=== PATIENT | female | born 1955 | race Caucasian/White ===

== ENCOUNTER 2019-08-26 09:04 | Outpatient (CLI) | payer OTHER, SELFPAY ==
--- NOTE | 2019-08-26 09:07 | MM_ITS ---
WS: [id number] BILATERAL DIGITAL SCREENING MAMMOGRAPHY WITH CAD CLINICAL INFORMATION: SCREENING HISTORY: Screening mammogram. No current complaints. COMPARISON: TECHNIQUE: Bilateral CC and MLO views. FINDINGS: Scattered fibroglandular densities bilaterally. Stable bilateral secretory calcifications. No suspici ous focal mass, asymmetry, calcifications, or architectural distortion. No evidence of malignancy. MM/[place] [id number] IMPRESSION: BI-RADS: 2-Benign FOLLOW UP: 1 Year Follow-up Recommend return to annual screening mammography.
== END 2019-08-26 09:05 | disposition home or self-care (01) ==
LOC: RADSHAW 09:05
PROVIDERS: Family Provider Nurse Practitioner; PCP Nurse Practitioner; Visit Provider Nurse Practitioner
DX: Z12.31 Encounter for screening mammogram for malignant neoplasm of breast (principal)
CPT/HCPCS: 77067

== ENCOUNTER 2019-09-22 09:46 | Outpatient (CLI) | payer OTHER, SELFPAY ==
--- NOTE | 2019-09-22 09:59 | XR_ITS ---
WS: [id number] CHEST 2 VIEWS HISTORY: PNEUMONIA COMPARISON: 03/13/2012 Lungs: New haziness and partial obscuration of the LEFT costophrenic angle. The remaining lungs are c lear. Cardiac size: Normal. Mediastinum/Aorta: Normal mediastinum. Bones: Normal. XR/XR chest 2V* [id number] IMPRESSION: Subsegmental atelectasis or pneumonitis at the LEFT costophrenic angle.
== END 2019-09-22 09:47 | disposition home or self-care (01) ==
LOC: RADWPI 09:56
PROVIDERS: Family Provider Nurse Practitioner; PCP Nurse Practitioner; Visit Provider Nurse Practitioner
DX: J15.9 Unspecified bacterial pneumonia
CPT/HCPCS: 71046

== ENCOUNTER 2020-09-21 08:52 | Outpatient (CLI) | payer OTHER, SELFPAY ==
--- NOTE | 2020-09-21 08:56 | MM_ITS ---
WS: [id number] BILATERAL DIGITAL SCREENING MAMMOGRAPHY WITH CAD CLINICAL INFORMATION: SCREENING HISTORY: Screening mammogram. No current complaints. COMPARISON: August 26, 2019 TECHNIQUE: Bilateral CC and MLO views. FINDINGS: Scattered fibroglandular densities bilaterally. No suspicious focal mass, asymmetry, calcifications, or architectural distortion. No evidence of malignancy. Punctate and secretory calcifications. Vascul ar calcification. MM/[place] [id number] IMPRESSION: BI-RADS: 2-Benign FOLLOW UP: 1 Year Follow-up Recommend return to annual screening mammography.
== END 2020-09-21 08:53 | disposition home or self-care (01) ==
LOC: RADSHAW 08:53
PROVIDERS: PCP Nurse Practitioner; Visit Provider Nurse Practitioner
DX: Z12.31 Encounter for screening mammogram for malignant neoplasm of breast (principal)
CPT/HCPCS: 77067

== ENCOUNTER 2020-09-24 08:43 | Outpatient (CLI) | payer OTHER, SELFPAY ==
[2020-09-24 09:21] LABS: Basophils % 0.7 %; Eosinophils # 0.1 10^3/uL (0.0-0.8); Eosinophils % 3.1 %; Hematocrit 44.6 % (37.0-47.0); Hemoglobin 13.9 g/dL (11.5-15.3); Lymphocytes # 1.2 10^3/uL (0.8-4.8); Lymphocytes % 26.3 %; Mean Corpuscular HGB Conc 31.2 g/dL (30.0-36.0); Mean Corpuscular Hemoglobin 28.4 pg (28.0-34.0); Mean Platelet Volume 8.6 fL (7.4-10.4); Monocytes # 0.3 10^3/uL (0.2-0.9); Monocytes % 7.1 %; Neutrophils # 2.84 10^3/uL (1.8-7.7); Neutrophils % 62.6 %; Nucleated Red Blood Cells % 0 %; Platelet Count 194 10^3/cmm (130-400); Red Cell Distribution Width 13.5 % (12.1-15.1); White Blood Count 4.5 10^3/uL (4.0-10.0)
[2020-09-24 09:43] LABS: Alanine Aminotransferase 19 U/L (0-33); Albumin Level 4.5 g/dL (3.5-5.2); Alkaline Phosphatase 61 IU/L (35-105); Anion Gap 14.2 (5-19); Aspartate Amino Transferase 19 U/L (0-32); Blood Urea Nitrogen 22 mg/dL (8-23); Calcium 9.7 mg/dL (8.5-10.5); Carbon Dioxide 26 mmol/L (22-29); Chloride 105 mmol/L (98-107); Chol HDL Ratio 2.73 mg/dL (0.0-4.40); Cholesterol 183 mg/dL (0-200); Globulin 2.5 g/dL (1.3-4.6); Glomerular Filtration Rate 72.2 mL/min (90-130); Glucose 92 mg/dL (65-115); HDL Cholesterol 67 mg/dL (60-100); LDL Cholesterol Calculated 98 mg/dL (50-129); LDL HDL Ratio 1.46 RATIO (0.00-3.22); Osmolality Calculated 295 mOsm/kg (285-295); Potassium 4.2 mmol/L (3.5-5.1); Sodium 141 mmol/L (136-145); Thyroid Stimulating Hormone 1.91 uIU/mL (0.27-4.20); Total Bilirubin 0.4 mg/dL (0.15-1.2); Triglycerides 92 mg/dL (0-150)
== END 2020-09-24 08:44 | disposition home or self-care (01) ==
PROVIDERS: PCP Nurse Practitioner; Visit Provider Nurse Practitioner
DX: E03.8 Other specified hypothyroidism (principal)
CPT/HCPCS: 36415; 80053; 80061; 84443; 85025

== ENCOUNTER 2021-05-21 15:26 | Outpatient (CLI) | payer MEDICARE, OTHER, SELFPAY ==
--- NOTE | 2021-05-21 15:32 | MR_ITS ---
WS: [id number] MRI LEFT KNEE HISTORY: LEFT KNEE EFFUSION COMPARISON: 01/27/2018 Anterior cruciate ligament: Intact. Posterior cruciate ligament: Intact. Medial collateral ligament: Intact. Posterior lateral corner structures: There is a small amount of fluid and increased signal in the pop liteus tendon, otherwise posterior corner structures appear intact. Medial menisci: Mild fraying involving the free edge of the posterior horn. Otherwise no tear. Lateral meniscus: Abnormal shape and signal involving the free edge of the posterior and anterior hor ns. There is increased T2 signal with blunting at the free edges. This is also the area of most signi ficant marrow signal abnormality and loss of cartilage. Extensor mechanism: Distal quadriceps tendon and patellar tendons are intact. Fluid and soft tissue: Small suprapatellar joint effusion. There is a loose body measuring 7 mm in th e suprapatellar fluid. There is additional low signal within the fluid from additional loose bodies. Moderate-sized Leavitt's cyst. There is additional fluid that extends along the medial head of the uyen rocnemius which appears separate from the Leavitt's cyst. Osseous and articular structures: Patellofemoral compartment: Severe narrowing of patellofemoral compartment. Complete loss of cartilag e with lateral subluxation of the patella and subchondral cystic changes involving the patella and th e anterior femur. Shallow lateral trochlea. Medial compartment: Mild narrowing of the medial compartment. No marrow edema. Small marginal osteoph ytes. Lateral compartment: Moderate narrowing of the lateral compartment. There is osteophyte measuring 3 x 7 mm which has slightly increased in size along the weightbearing surface of the lateral femoral condyle. There is a large amount of edema in the tibial plateau which is probably due to repetitive injury from the osteophyte. There are also meniscal tears and cartilage abnormalities along the same weightbearing distribution. Moderate size osteophytes along the joint line. MR/MR knee LT wo con* [id number] IMPRESSION: 1. Progression of degenerative changes in the lateral compartment are probably all associated with the 3 x 7 mm osteophyte that extends from the weightbearin g surface of the femoral condyle into the joint space. There is associated deb ow edema along the tibial plateau with increasing cartilage injury and meniscal tears. Progression of changes since 01/27/2018. Meniscal tears involving the fr ee edge is of the anterior and posterior horns of the lateral meniscus. 2. Small suprapatellar joint effusion with loose bodies. 3. 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 4. Moderate-sized Leavitt's cyst. Small amount of fluid extends along the medial head of the gastrocnemius. 5. Mild fraying free edge posterior horn medial meniscus.
== END 2021-05-21 15:27 | disposition home or self-care (01) ==
PROVIDERS: PCP Nurse Practitioner; Visit Provider Emergency Medicine
DX: M25.462 Effusion, left knee (principal); M71.22 Synovial cyst of popliteal space [Baker], left knee
CPT/HCPCS: 73721

== ENCOUNTER 2021-08-27 13:14 | Outpatient (CLI) | payer MEDICARE, OTHER, SELFPAY ==
--- NOTE | 2021-08-27 13:26 | XR_ITS ---
WS: [id number] KUB, AP view, 08/27/2021 Clinical Data: STONE Comparison: KUB, 11/17/2016. Findings: No abnormal intraabdominal masses or calcifications are seen. There is no dilatated small bowel or ev idence of obstruction. There is a large amount of fecal material throughout the colon. Bladder is partly full. XR/XR KUB [id number] Impression: Large amount of fecal material throughout the colon.
== END 2021-08-27 13:15 | disposition home or self-care (01) ==
PROVIDERS: PCP Nurse Practitioner; Visit Provider Urology
DX: N20.2 Calculus of kidney with calculus of ureter (principal)
CPT/HCPCS: 74018; 81003

== ENCOUNTER 2021-08-28 13:22 | Outpatient (CLI) | payer MEDICARE, OTHER, SELFPAY ==
--- NOTE | 2021-08-28 13:30 | CT_ITS ---
WS: [id number] CT ABDOMEN PELVIS TECHNIQUE: Noncontrast CT of the abdomen and pelvis with coronal and sagittal reformatted images. CLINICAL INFORMATION: URETERAL STONE COMPARISON: CT March 31, 2016 DLP: 1251.[address] scans at [facility] use at least one of these dose optimization techniques: automated e xposure control; mA and/or kV adjustment per patient size (includes targeted exams where dose is matc hed to clinical indication); or iterative reconstruction. FINDINGS: No hydronephrosis in the left kidney. No obstructing left renal or ureteral calculi. Left ureter is d ecompressed. No hydronephrosis in the right kidney. Right ureter is decompressed. Noncontrast liver is normal. Small esophageal hiatal hernia. Adrenal glands are normal. Mild fatty at rophy of the pancreas. Normal caliber abdominal aorta. Mild sigmoid constipation. Transverse colon and right colon constipation. Small amount of free fluid in the pelvis. No periaortic or pelvic lymphadenopathy. No inguinal lymphadenopathy. Mild lumbar curv e. Mild disc space narrowing worse at L1-L2 and L2-L3. Slight anterolisthesis L4 on L5. Shallow centr al protrusion L4-5 with mild central canal stenosis. Lung bases are well aerated. 8 mm noncalcified nodule right lower lobe along the diaphragm. Recommend 6 month follow-up chest CT. In retrospect this was present in 2015 measuring approximately 6 mm at t hat time CT/CT kidney stone [id number] IMPRESSION: 1. No obstructing renal or ureteral calculi. No hydronephrosis in either kidne y. 2. Mild to moderate pancolonic constipation. 3. No evidence of small or large bowel obstruction. 4. Small esophageal hiatal hernia. 5. 8 mm noncalcified nodule right lower lobe along the diaphragm. Recommend 6 month follow-up chest CT.
== END 2021-08-28 13:23 | disposition home or self-care (01) ==
LOC: RAD 13:28
PROVIDERS: PCP Nurse Practitioner; Visit Provider Urology
DX: N20.2 Calculus of kidney with calculus of ureter (principal); K59.00 Constipation, unspecified; K44.9 Diaphragmatic hernia without obstruction or gangrene; R91.1 Solitary pulmonary nodule
CPT/HCPCS: 74176

== ENCOUNTER 2021-08-29 07:52 | Inpatient (IN) | payer MEDICARE, OTHER, SELFPAY ==
[2021-08-29] VITALS (10 sets, daily range): BP systolic 141–163; BP diastolic 54–97; PULSE 51–81; RESP 13–24; TEMP 36.8; O2SAT 94–98; BMI 28.7; BMI 30.2
--- NOTE | 2021-08-29 07:55 | CT_ITS ---
WS: [id number] CT ABDOMEN AND PELVIS WITH CONTRAST HISTORY: Left-sided abdominal pain. TECHNIQUE: Imaging performed of the abdomen and pelvis with IV contrast. Single phase imaging of the abdomen. Coronal and sagittal reformats are submitted. All CT scans at [facility] use at [address] one of these dose optimization techniques: automated exposure control; mA and/or kV adjustment per patient size (includes targeted exams where dose is matched to clinical indication); or iterative re construction. IV CONTRAST: Omnipaque 300; 95 mL IV. Oral contrast: No DLP: 1547.78 mGy.cm COMPARISON: 08/28/2021 Lower thorax: Again noted is the 8 mm nodule along the RIGHT diaphragmatic surface for which follow-u p is recommended. Mild pleural thickening at the lung bases. Mildly enlarged heart. Small hiatal henry ia. Liver/biliary system: There are a few scattered hypoechoic nodules within the liver which are too sma ll to characterize. These may be small cysts. Central bile ducts are mildly dilated. No mass. Gallbladder: Normal. No gallstones or wall thickening. No pericholecystic fluid. Pancreas: Normal pancreas. Common bile duct at pancreatic head is normal size at 6 mm. Spleen: Normal size spleen. No mass or infarct. Adrenal glands: Normal. Right kidney: Normal. Left kidney: There are a few scattered hypoechoic dense areas which cannot be further characterized. May be small cysts. No obstruction or solid mass identified. Aorta: Normal. Lymphadenopathy: None. Free fluid: None. GI tract: There is a dilated loop of small bowel in the central abdomen with fecalization. This loop of small bowel measures 2.7 cm in diameter and was not present on the study obtained earlier on 2021. There is a focal area of soft tissue thickening and tethering the small amount of fluid central ly which may be an adhesion. Closed loop small bowel obstruction should be considered. The appendix i s visualized and normal. No colonic obstruction. Proximal small bowel loops are mildly fluid-filled. Abdominal wall: Unremarkable abdominal wall. No hernia. Pelvis: Small amount of free fluid in the pelvis. Bones: Mild degenerative changes within the lumbar spine. No osteoblastic or osteolytic bone disease. CT/CT abdomen pelvis w con* [id number] IMPRESSION: 1. Since the prior examination, obtained one day ago there has been developmen t of a dilated small bowel loop with fecalization in the central abdomen. There is a focal area of mild tethering centrally which may be an adhesion. Closed l oop small bowel obstruction should be considered. 2. Small amount of free fluid in the pelvis. 3. The appendix is normal. 4. No change in the 8 mm in nodule in the RIGHT diaphragmatic surface for whic h follow-up was recommended on the prior study. 5. Very minimal biliary dilatation with no obstructing stone or mass identifie d. Notified Yao Loving DO at 08/29/2021 10:13 AM.
--- NOTE | 2021-08-29 07:56 | ECG_ITS ---
[facility] Test Date: 2021-08-29 Pat Name: Martha Spear Department: Room: Gender: Female Customer Quality Specialist: : [id number] Requested By: Yao Aguayo Order Number: [id number] Ml MD: Raisa Mendenhall M.D. Measurements Intervals [place] Rate: 53 P: 51 NM: 208 QRS: 74 QRSD: 93 T: 55 QT: 405 QTc: 384 Interpretive Statements SINUS BRADYCARDIA No previous ECG available for comparison Electronically Signed On 08-29-2021 22:06:39 MAT LINKER by Raisa Mendenhall M.D. [email or web address]
--- NOTE | 2021-08-29 08:24 | ED_ITS ---
HPI - Abdominal Pain General: Chief Complaint: Abdominal Pain Stated Complaint: SEVERE ABD PAINS Time Seen by Provider: 08/29/21 07:55 Source: patient History of Present Illness: 66-year-old female presents emergency room with abdominal pain. She had seen Dr. Keen earlier this week they thought she had a kidney stone and her pain became difficult to control and she was started on oxycodone had a CT done CT yesterday showed some free fluid in the pelvis and no evidence of renal stone. She presents this morning with worsening cramping abdominal pain. She denies any hematochezia or melena. She did have some constipation her last few days she had used some mag citrate and suppositories had some results yesterday afternoon but none since then. No dysuria urgency or frequency. MD elicited complaint: abdominal pain Pertinent past history: none Onset (ago): day(s) Pain Consistency: constant and colicky Location: L flank Quality: cramping Radiation: L flank Migration to: LLQ Exacerbating factors: nothing Relieving factors: nothing Associated Symptoms: Reports bloating, constipation, GI cramping and nausea; Denies change in bowel habits, change in stool character, chills, coffee ground emesis, diarrhea, dyspepsia, dysuria, excessive flatus, fever(s), heartburn, hematochezia, hematuria, hematemesis, fecal incontinence, loose stools, melena, poor appetite, syncope and vomiting Review of Systems Const: Denies: fever(s) or chills Card: Denies: syncope GI: Reports: nausea, constipation, bloating and GI cramping; Denies: vomiting, hematemesis, coffee ground emesis, heartburn, diarrhea, excessive flatus, fecal incontinence, change in bowel habits, change in stool character, hematochezia or melena : Denies: dysuria or hematuria PFSH ED PFSH: Medical History (Updated 08/29/21 @ 10:55 by Kendrick Shankar MD) Arthritis Hypothyroidism Nephrolithiasis Surgical History (Updated 08/29/21 @ 10:55 by Kendrick Shankar MD) History of 3 sections History of lithotripsy Family History (Updated 08/27/21 @ 14:18 by Wanda Garibay LPN) Mother , at age 74 Hypertension CAD (coronary artery disease) Heart disease Father , at age 74 Kidney failure Social History (Updated 08/27/21 @ 14:19 by Wanda Garibay LPN) Smoking and tobacco status: never smoked Alcohol intake: current Alcohol intake frequency: holidays/special occasions only Marital status: Current occupational status: employed History of recent travel: [place] ([place] Physical Exam Const: COMMON NORMALS: no acute distress GENERAL APPEARANCE: cooperative and comfortable ORIENTATION/CONSCIOUSNESS: Yes awake, Yes oriented to person, Yes oriented to place and Yes oriented to time HENMT: COMMON NORMALS: normocephalic and atraumatic HEAD & SCALP: normocephalic and atraumatic Neck/C-Spine: COMMON NORMALS: no JVD Resp: COMMON NORMALS: normal respiratory effort, No retractions, No use of accessory muscles and clear to auscultation bilaterally AUSCULTATION: clear to auscultation bilaterally Cardio: COMMON NORMALS: no JVD, regular rate, regular rhythm and No murmurs present (Cardio) RATE: regular rate RHYTHM: regular rhythm GI: COMMON NORMALS: No hepatosplenomegaly present AUSCULTATION: Yes Hypoactive bowel sounds present PALPATION: Yes Tenderness to palpation present (GI) Details: LLQ, No Guarding due to palpation present (GI) and Yes No hepatosplenomegaly present Extremity: COMMON NORMALS: normal to inspection, capillary refill normal, no clubbing, cyanosis or edema, no calf tenderness and no pedal edema Neuro: SENSORIUM/ORIENTATION: Yes oriented to person, Yes oriented to place and Yes oriented to time Skin: COMMON NORMALS: no rashes or lesions noted GENERAL SKIN EXAM: no rashes or lesions noted Course Vital Signs: Vital signs: Vital Signs Temperature 98.3 F 08/29/21 07:58 Pulse Rate 63 08/29/21 10:28 Respiratory Rate 13 08/29/21 10:28 Blood Pressure 152/64 08/29/21 10:28 Pulse Oximetry 95 08/29/21 10:28 MDM - Abdominal Pain Medical Decision Making CT labs and imaging reviewed discussed Dr. Ibrahim. Patient does not have a lot of ongoing medical issues also discussed Dr. Owens he has already seen the patient were going to place patient on hobs for her Dr. Ibrahim is available for consult if needed. Orders written. Differential Diagnosis Likely abdominal pain Medical Records I reviewed the patient's medical records. Lab Data I reviewed the patient's lab results. : 08/29/21 08:38 08/29/21 08:38 Labs/Radiology: Radiology Impressions Abdomen/Pelvis CT 08/29/21 07:55 IMPRESSION: 1. Since the prior examination, obtained one day ago there has been development of a dilated small bowel loop with fecalization in the central abdomen. There is a focal area of mild tethering centrally which may be an adhesion. Closed loop small bowel obstruction should be considered. 2. Small amount of free fluid in the pelvis. 3. The appendix is normal. 4. No change in the 8 mm in nodule in the RIGHT diaphragmatic surface for which follow-up was recommended on the prior study. 5. Very minimal biliary dilatation with no obstructing stone or mass identified. Notified Yao Loving DO at 08/29/2021 10:13 AM. Laboratory Results WBC 3.9 10^3/uL (4.0-10.0) L 08/29/21 08:38 RBC 4.81 10^6/uL (4.1-5.3) 08/29/21 08:38 Hgb 13.9 g/dL (11.5-15.3) 08/29/21 08:38 Hct 43.9 % (37.0-47.0) 08/29/21 08:38 MCV 91.3 fl (81-99) 08/29/21 08:38 MCH 28.9 pg (28.0-34.0) 08/29/21 08:38 MCHC 31.7 g/dL (30.0-36.0) 08/29/21 08:38 RDW 13.0 % (12.1-15.1) 08/29/21 08:38 Plt Count 190 10^3/cmm (130-400) 08/29/21 08:38 MPV 8.8 fL (7.4-10.4) 08/29/21 08:38 Neut % (Auto) 71.1 % 08/29/21 08:38 Lymph % (Auto) 20.3 % 08/29/21 08:38 [place] % (Auto) 5.9 % 08/29/21 08:38 Eos % (Auto) 2.1 % 08/29/21 08:38 Baso % (Auto) 0.3 % 08/29/21 08:38 Neut # (Auto) 2.78 10^3/uL (1.8-7.7) 08/29/21 08:38 Lymph # (Auto) 0.8 10^3/uL (0.8-4.8) 08/29/21 08:38 [place] # (Auto) 0.2 10^3/uL (0.2-0.9) 08/29/21 08:38 Eos # (Auto) 0.1 10^3/uL (0.0-0.8) 08/29/21 08:38 Baso # (Auto) 0.0 10^3/uL (0.0-0.1) 08/29/21 08:38 Nucleated RBC % (auto) 0 % 08/29/21 08:38 Nucleated RBCs # 0.0 /100WBC 08/29/21 08:38 Sodium 139 mmol/L (136-145) 08/29/21 08:38 Potassium 4.2 mmol/L (3.5-5.1) 08/29/21 08:38 Chloride 101 mmol/L (98-107) 08/29/21 08:38 Carbon Dioxide 25 mmol/L (22-29) 08/29/21 08:38 Anion Gap 17.2 (5-19) 08/29/21 08:38 BUN 11 mg/dL (8-23) 08/29/21 08:38 Creatinine 0.8 mg/dL (0.5-0.9) 08/29/21 08:38 GFR Calculation 72.0 mL/min (90-130) L 08/29/21 08:38 Glucose 120 mg/dL (65-115) H 08/29/21 08:38 Calculated Osmolality 289 mOsm/kg (285-295) 08/29/21 08:38 Lactic Acid 1.0 mmol/L (0.5-2.2) 08/29/21 08:38 Calcium 9.8 mg/dL (8.5-10.5) 08/29/21 08:38 Total Bilirubin 0.4 mg/dL (0.15-1.2) 08/29/21 08:38 AST 20 U/L (0-32) 08/29/21 08:38 ALT 17 U/L (0-33) 08/29/21 08:38 Alkaline Phosphatase 60 IU/L (35-105) 08/29/21 08:38 Total Protein 6.9 g/dL (6.6-8.7) 08/29/21 08:38 Albumin 4.8 g/dL (3.5-5.2) 08/29/21 08:38 Globulin 2.1 g/dL (1.3-4.6) 08/29/21 08:38 Lipase 32 U/L (13-60) 08/29/21 08:38 Urine Color Yellow (Yellow) 08/29/21 09:01 Urine Appearance Clear (CLEAR) 08/29/21 09:01 Urine pH 6.5 (5-7) 08/29/21 09:01 Ur Specific [place] 1.025 (1.005-1.030) 08/29/21 09:01 Urine Protein Neg (Negative) 08/29/21 09:01 Urine Glucose (UA) Norm (Normal) 08/29/21 09:01 Urine Ketones Negative (Negative) 08/29/21 09:01 Urine Blood Neg (Negative) 08/29/21 09:01 Urine Nitrate Negative (Negative) 08/29/21 09:01 Urine Bilirubin Neg (Negative) 08/29/21 09:01 Urine Urobilinogen Norm mg/dL (Negative) 08/29/21 09:01 Ur Leukocyte Esterase Negative (Negative) 08/29/21 09:01 Discharge Plan Discharge Condition: Stable Prescriptions: No Action meloxicam [Mobic] 15 mg tablet 15 mg PO DAILY 0RF levothyroxine [Synthroid] 75 mcg tablet 75 mcg PO DAILY 0RF nutrilite PO DAILY 0RF glucosamine [id number] 750-375-400 mg tablet 2 tab PO BID 0RF garlic 500 mg capsule 500 mg PO BID 0RF gp-0-nlj-epa-fish oil-vit D3 [phone] pv-hz-oc-unit capsule PO BID 0RF turmeric curc PO BID 0RF niacin 500 mg tablet 500 mg PO BID 0RF oxycodone-acetaminophen [Percocet] 5-325 mg tablet 1 tab PO Q6H PRN (Reason: painful procedure) 5 Days Qty: 20 0RF tamsulosin 0.4 mg capsule 0.4 mg PO QDAY Qty: 30 12RF ondansetron 4 mg tablet,disintegrating 4 mg PO Q8H PRN (Reason: nausea and vomiting) Qty: 10 1RF Referrals: Nelsy Young APN [Primary Care Provider] - Coding Level of Care Code ED Specialty Trimmer for Chg Fwd Exam Comprehensive
[2021-08-29 08:49] LABS: Basophils % 0.3 %; Eosinophils # 0.1 10^3/uL (0.0-0.8); Eosinophils % 2.1 %; Hematocrit 43.9 % (37.0-47.0); Hemoglobin 13.9 g/dL (11.5-15.3); Lymphocytes # 0.8 10^3/uL (0.8-4.8); Lymphocytes % 20.3 %; Mean Corpuscular HGB Conc 31.7 g/dL (30.0-36.0); Mean Corpuscular Hemoglobin 28.9 pg (28.0-34.0); Mean Corpuscular Volume 91.3 fl (81-99); Mean Platelet Volume 8.8 fL (7.4-10.4); Monocytes # 0.2 10^3/uL (0.2-0.9); Monocytes % 5.9 %; Neutrophils # 2.78 10^3/uL (1.8-7.7); Neutrophils % 71.1 %; Nucleated Red Blood Cells % 0 %; Platelet Count 190 10^3/cmm (130-400); Red Blood Count 4.81 10^6/uL (4.1-5.3); White Blood Count 3.9 10^3/uL (4.0-10.0)
[2021-08-29] MEDS: sodium chloride 0.9% 1,000 ML 999 ML IV (08:53)
[2021-08-29] MEDS: ondansetron 2 mg/ML SDV 2 mL 4 MG IVP ×4 (08:54→20:20)
[2021-08-29] MEDS: morphine 4 mg/mL SDV 1 mL 6 MG IVP ×2 (08:56→11:43)
[2021-08-29 09:07] LABS: Add Urine Microscopic? NO; Charge for UA Resulting for Rev
[2021-08-29 09:09] LABS: Alanine Aminotransferase 17 U/L (0-33); Albumin Level 4.8 g/dL (3.5-5.2); Alkaline Phosphatase 60 IU/L (35-105); Anion Gap 17.2 (5-19); Aspartate Amino Transferase 20 U/L (0-32); Blood Urea Nitrogen 11 mg/dL (8-23); Calcium 9.8 mg/dL (8.5-10.5); Carbon Dioxide 25 mmol/L (22-29); Chloride 101 mmol/L (98-107); Globulin 2.1 g/dL (1.3-4.6); Glucose 120 mg/dL (65-115); Lipase 32 U/L (13-60); Osmolality Calculated 289 mOsm/kg (285-295); Potassium 4.2 mmol/L (3.5-5.1); Sodium 139 mmol/L (136-145); Total Bilirubin 0.4 mg/dL (0.15-1.2); Total Protein 6.9 g/dL (6.6-8.7)
[2021-08-29 09:19] LABS: Bilirubin Urine Neg (Negative); Blood Urine Neg (Negative); Glucose Urine UA Norm (Normal); Ketones Urine Negative (Negative); Leukocyte Esterase Urine Negative (Negative); Nitrate Urine Negative (Negative); Protein Urine Neg (Negative); Specific Gravity, Urine 1.025 (1.005-1.030); Urine Appearance Clear (CLEAR); Urine Color Yellow (Yellow); Urobilinogen Urine Norm (Negative); pH Urine 6.5 (5-7)
[2021-08-29] MEDS: iohexol 300 mg/mL 100 mL Btl IV (09:21)
--- NOTE | 2021-08-29 10:24 | PC.NURSE ---
Pt placed on continunal cardiac, BP, and SpO2 monitoring upon arrical into room
--- NOTE | 2021-08-29 10:53 | PM.HP ---
Providers/Chief Complaint Admitting Physician: General Surgery Kendrick Shankar MD Primary Care Provider: Nelsy Young APN Chief Complaint: SEVERE ABD PAINS History of Present Illness Martha Spear is a 66 year old female who says that she recently started having some sharp abdominal pains, perhaps dating back as long as 2 weeks. She has a history of nephrolithiasis and notified Dr. Keen from urology. A plain film was done which apparently did not show anything abnormal but she ended up having a CAT scan yesterday which was read as essentially normal. Her pain persisted today and even worsened a little bit and so she came into the emergency room again. A repeat CAT scan seemed to show some changes in the small bowel suggestive of a possible partial obstructive process. The patient says that she has had some nausea but no vomiting. She has felt constipated recently, she thinks in part because she was placed on some OxyContin for her discomfort/possible kidney stone. She was having her discomfort obviously before the OxyContin was started, however. She does have a tendency towards being constipated and so she tries to eat a lot of fiber and takes in a lot of fluid every day orally. Yesterday she only had a little bit of fruit because of her discomfort. She drank about 5 ounces of magnesium citrate in the last couple of days but did not feel like she had any results and so she did several enemas at home and ended up evacuating some stool. She says she is also taken about 3 Dulcolax tablets over the last 24 hours, the last tablet was this morning. This has never really happened to the patient before. As mentioned, she originally thought she may be getting symptoms from a kidney stone but that does not appear to be the case. Medications/Allergies Home Medications Medication Instructions Recorded Confirmed Last Taken Type levothyroxine 75 mcg tablet 75 mcg PO DAILY 09/18/20 08/27/21 Unknown History (Synthroid) meloxicam 15 mg tablet (Mobic) 15 mg PO DAILY 09/18/20 08/27/21 Unknown History garlic 500 mg capsule 500 mg PO BID cap 08/27/21 08/27/21 Unknown History glucosamine HHt-vin-wzyehisyfiz 2 tab PO BID tab 08/27/21 08/27/21 Unknown History 750 mg-375 mg-400 mg tablet niacin 500 mg tablet 500 mg PO BID 08/27/21 08/27/21 Unknown History nutrilite PO DAILY 08/27/21 Unknown History omega-3 650 mg-dha 400 mg-epa 200 cap PO BID cap 08/27/21 08/27/21 Unknown History mg-fish oil-vit D3 300 unit capsule ondansetron 4 mg disintegrating 4 mg PO Q8H PRN #10 tab 08/27/21 08/27/21 Unknown Rx tablet oxycodone-acetaminophen 5 mg-325 1 tab PO Q6H PRN 5 Days #20 tab 08/27/21 08/27/21 Unknown Rx mg tablet (Percocet) tamsulosin 0.4 mg capsule 0.4 mg PO QDAY #30 cap 08/27/21 08/27/21 Unknown Rx turmeric curc PO BID 08/27/21 Unknown History Allergies Allergy/AdvReac Type Severity Reaction Status Date / Time No Known Allergies Allergy Verified 08/29/21 07:58 PFSH Acute PFSH: Medical History (Updated 08/29/21 @ 10:55 by Kendrick Shankar MD) Arthritis Hypothyroidism Nephrolithiasis Surgical History (Updated 08/29/21 @ 10:55 by Kendrick Shankar MD) History of 3 sections History of lithotripsy Family History (Updated 08/27/21 @ 14:18 by Wanda Garibay LPN) Mother , at age 74 Hypertension CAD (coronary artery disease) Heart disease Father , at age 74 Kidney failure Social History (Updated 08/27/21 @ 14:19 by Wanda Garibay LPN) Smoking and tobacco status: never smoked Alcohol intake: current Alcohol intake frequency: holidays/special occasions only Marital status: Current occupational status: employed History of recent travel: [place] ([place] Vitals/I&O/Wt Last Vital Signs Temp 98.3 F 08/29/21 07:58 Pulse 63 08/29/21 10:28 Resp 13 08/29/21 10:28 BP 152/64 08/29/21 10:28 Pulse Ox 95 08/29/21 10:28 Weight last 48 hrs Weight 162 lb Physical Exam Narrative: EXAM NARRATIVE: The patient was encountered in her room in the emergency department. She does not appear to be in any distress, but will move around on the gurney on occasion as if she might be uncomfortable at times. The pupils are equal. No carotid bruits are heard. The lungs are clear anteriorly. The heart is regular. The abdomen is mildly to moderately obese but reveals some bowel sounds. The patient has minimal tenderness to my exam but it seems to be most reproducible in the left upper quadrant. No obvious masses are palpated. The extremities reveal no edema. Neurologically the patient is grossly intact. Data : 08/29/21 08:38 08/29/21 08:38 CT Abd/Pel: Radiologist's impression: CT scan abdomen/pelvis 08/29/2001 IMPRESSION: ? 1.? Since the prior examination, obtained one day ago there has been development of a dilated small bowel loop with fecalization in the central abdomen. There is a focal area of mild tethering centrally which may be an adhesion. Closed loop small bowel obstruction should be considered. 2.? Small amount of free fluid in the pelvis. 3.? The appendix is normal. 4.? No change in the 8 mm in nodule in the RIGHT diaphragmatic surface for which follow-up was recommended on the prior study. 5.? Very minimal biliary dilatation with no obstructing stone or mass identified. A&P Assessment and plan (1) Left upper quadrant abdominal pain: Status: Acute (2) Abnormal CT scan, gastrointestinal tract: CT reviewed. I agree that the patient does have somewhat of a strange appearance to part of her ileum just underneath the umbilical region on her CAT scan, at least in the axial images. The other orientations do not look quite so strange to me. It does not appear to be an obvious closed-loop process to me. Nevertheless, she remains symptomatic. I have to wonder about her high fiber intake perhaps being somewhat symptomatic for her since she is already constipated. The patient tried some magnesium citrate at home and has ended up taking several Dulcolax tablets, the last of which was this morning. I told her I would plan on just watching things today and see if things improve on their own given the fact that this is already in her system. In the interim we will try to keep her pain under control without narcotics and keep her nausea regulated, keep her hydrated, etc. She is in agreement with the above plan. Status: Acute Attestations Medical Necessity Statement*: Based on my medical assessment, presenting symptoms and consideration of the scope of surgical therapy, I expect this patient will require treatment in the hospital for a period of time spanning less than 2 midnights, and is therefore being placed in observation status. 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
[2021-08-29] MEDS: D5-NS 0.45% + KCL 20 mEq 20 MEQ/1,000 ML BAG 100 MEQ IV ×2 (11:48→22:17)
[2021-08-29] MEDS: ketorolac 30 mg/mL INJ IVP (17:41)
[2021-08-29] MEDS: famotidine 20 mg/2 mL INJ IVP (17:42)
[2021-08-29] MEDS: morphine 4 mg/mL SDV 1 mL 1 MG IVP ×2 (20:20→23:41)
[2021-08-30] VITALS: BP 136/50; PULSE 56; RESP 18; O2SAT 96
[2021-08-30] MEDS: ondansetron 2 mg/ML SDV 2 mL 4 MG IVP (00:59)
[2021-08-30 04:00] VITALS: BP 120/68; PULSE 60; O2SAT 95
[2021-08-30] MEDS: ketorolac 30 mg/mL INJ IVP ×4 (04:17→23:49)
--- NOTE | 2021-08-30 06:34 | P.PN_ITS ---
Subjective Subjective: Interval history: The patient says she continues to pass small amounts of flatus. She is still having some discomfort which seems to come and go a little bit. She was hoping I could increase her pain medication, as apparently only 1 mg of morphine was ordered for her at a time. Otherwise, she is using Toradol. We discussed the Catch-22 of using morphine while trying to get bowel activity increasing. She voiced understanding. Vitals/I&O/Wt Last Vital Signs Temp 98.3 F 08/29/21 21:14 Pulse 60 08/30/21 04:00 Resp 18 08/30/21 00:00 BP 120/68 08/30/21 04:00 Pulse Ox 95 08/30/21 04:00 08/29/21 08/29/21 08/30/21 14:59 22:59 06:59 Intake Total 1999 Balance 1999 Weight last 48 hrs Weight 171 lb Weight 162 lb Physical Exam Narrative: EXAM NARRATIVE: General Surgery The abdomen is soft. Bowel sounds are present. She does not have any concerning tenderness but may be still has a little bit in the lower abdomen near the midline and in the left lower quadrant. Data : 08/29/21 08:38 08/29/21 08:38 A&P Assessment and plan (1) Left upper quadrant abdominal pain: Status: Acute (2) Abnormal CT scan, gastrointestinal tract: CT reviewed. I agree that the patient does have somewhat of a strange appearance to part of her ileum just underneath the umbilical region on her CAT scan, at least in the axial images. The other orientations do not look quite so strange to me. It does not appear to be an obvious closed-loop process to me. Nevertheless, she remains symptomatic. I have to wonder about her high fiber intake perhaps being somewhat symptomatic for her since she is already con stipated. Given the patient's continued cramping, I am going to still hold off on any further laxatives. Subcutaneous heparin. Continue hydration, etc. Status: Acute Attestations Medical Necessity Statement*: This patient is transitioning from an observation level of care to an inpatient level of care because of her continued symptomatology and need for inpatient care for partial bowel obstruction. 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
[2021-08-30 07:10] LABS: Basophils % 0.7 %; Eosinophils # 0.2 10^3/uL (0.0-0.8); Eosinophils % 5.1 %; Hematocrit 42.8 % (37.0-47.0); Hemoglobin 13.1 g/dL (11.5-15.3); Lymphocytes # 1.4 10^3/uL (0.8-4.8); Lymphocytes % 33.3 %; Mean Corpuscular HGB Conc 30.6 g/dL (30.0-36.0); Mean Corpuscular Hemoglobin 28.9 pg (28.0-34.0); Mean Corpuscular Volume 94.3 fl (81-99); Monocytes # 0.4 10^3/uL (0.2-0.9); Monocytes % 9.6 %; Neutrophils # 2.12 10^3/uL (1.8-7.7); Neutrophils % 51.1 %; Nucleated Red Blood Cells % 0 %; Platelet Count 190 10^3/cmm (130-400); Red Blood Count 4.54 10^6/uL (4.1-5.3); Red Cell Distribution Width 13.1 % (12.1-15.1); White Blood Count 4.2 10^3/uL (4.0-10.0)
[2021-08-30 07:24] LABS: Alanine Aminotransferase 13 U/L (0-33); Albumin Level 4.1 g/dL (3.5-5.2); Alkaline Phosphatase 54 IU/L (35-105); Anion Gap 14.1 (5-19); Aspartate Amino Transferase 15 U/L (0-32); Blood Urea Nitrogen 8 mg/dL (8-23); Calcium 8.3 mg/dL (8.5-10.5); Carbon Dioxide 23 mmol/L (22-29); Chloride 107 mmol/L (98-107); Globulin 2.1 g/dL (1.3-4.6); Glucose 99 mg/dL (65-115); Osmolality Calculated 288 mOsm/kg (285-295); Potassium 4.1 mmol/L (3.5-5.1); Sodium 140 mmol/L (136-145); Total Bilirubin 0.3 mg/dL (0.15-1.2); Total Protein 6.2 g/dL (6.6-8.7)
[2021-08-30 07:34] VITALS: BP 147/72; PULSE 59; RESP 16; TEMP 36.6; O2SAT 95
[2021-08-30] MEDS: D5-NS 0.45% + KCL 20 mEq 20 MEQ/1,000 ML BAG 100 MEQ IV ×2 (09:25→19:04)
[2021-08-30] MEDS: heparin 5,000 unit/mL INJ 1 mL 5000 UNIT SUBCUT ×2 (09:25→17:48)
[2021-08-30] MEDS: famotidine 20 mg/2 mL INJ IVP ×2 (09:25→17:48)
[2021-08-30 12:00] VITALS: BP 136/80; PULSE 62; RESP 16; TEMP 36.8; O2SAT 62
[2021-08-30 16:00] VITALS: BP 137/73; PULSE 53; RESP 16; TEMP 37; O2SAT 96
[2021-08-30 20:00] VITALS: BP 161/81; PULSE 50; RESP 16; TEMP 36.9
[2021-08-31] VITALS: BP 158/80; PULSE 58; RESP 16; TEMP 37.2; O2SAT 96
[2021-08-31 04:00] VITALS: BP 136/83; PULSE 45; RESP 16; TEMP 36.9; O2SAT 98
[2021-08-31] MEDS: D5-NS 0.45% + KCL 20 mEq 20 MEQ/1,000 ML BAG 100 MEQ IV (04:51)
[2021-08-31] MEDS: heparin 5,000 unit/mL INJ 1 mL 5000 UNIT SUBCUT (06:17)
[2021-08-31 06:51] LABS: Basophils % 0.5 %; Eosinophils # 0.2 10^3/uL (0.0-0.8); Eosinophils % 5.1 %; Hematocrit 41.9 % (37.0-47.0); Hemoglobin 12.9 g/dL (11.5-15.3); Lymphocytes # 1.5 10^3/uL (0.8-4.8); Lymphocytes % 39.3 %; Mean Corpuscular HGB Conc 30.8 g/dL (30.0-36.0); Mean Corpuscular Hemoglobin 28.7 pg (28.0-34.0); Mean Corpuscular Volume 93.3 fl (81-99); Mean Platelet Volume 9.3 fL (7.4-10.4); Monocytes # 0.4 10^3/uL (0.2-0.9); Monocytes % 10.3 %; Neutrophils # 1.65 10^3/uL (1.8-7.7); Neutrophils % 44.8 %; Nucleated Red Blood Cells % 0 %; Platelet Count 175 10^3/cmm (130-400); Red Blood Count 4.49 10^6/uL (4.1-5.3); Red Cell Distribution Width 12.7 % (12.1-15.1); White Blood Count 3.7 10^3/uL (4.0-10.0)
[2021-08-31 07:07] LABS: Anion Gap 16.3 (5-19); Blood Urea Nitrogen 6 mg/dL (8-23); Calcium 9.2 mg/dL (8.5-10.5); Carbon Dioxide 22 mmol/L (22-29); Chloride 106 mmol/L (98-107); Glucose 96 mg/dL (65-115); Osmolality Calculated 287 mOsm/kg (285-295); Potassium 4.3 mmol/L (3.5-5.1); Sodium 140 mmol/L (136-145)
[2021-08-31 07:19] VITALS: BP 156/62; PULSE 55; RESP 18; TEMP 36.3; O2SAT 98
--- NOTE | 2021-08-31 08:26 | P.DS_ITS ---
Discharge Providers Date of Admission: 08/30/21 06:18 Date of Discharge: August 31, 2021 Attending Provider at Admission: Kendrick Shankar MD Attending Provider at Discharge: Kendrick Shankar MD Primary Care Provider: Nelsy Young APN Diagnoses at Discharge Discharge Diagnosis (1) Left upper quadrant abdominal pain: Status: Acute (2) Abnormal CT scan, gastrointestinal tract: Details from hospital stay: The patient presented with abdominal pain and a CAT scan that she seemed to show fecalization of contents in a loop of small bowel that had just developed since a CAT scan the previous day was normal. She never did exhibit any signs of bowel obstruction. Status: Acute Reason for Visit Reason for Visit: SEVERE ABD PAINS Hospital Course Hospital Course The patient was admitted on 08/29/2021 with abdominal pain and CAT scan changes possibly suggesting a partial small bowel obstructive process. She was brought in under observation but remained somewhat symptomatic with abdominal pain the following day and so she was converted to inpatient status. She was also complaining of left flank pain that seemed to extend down into the anterior portion of her left lower quadrant. She had a small calcification in the left side of the pelvis on her CAT scan but I reviewed this with the radiologist and she indicated this was a phlebolith and not any type of the kidney/ureteral stone. The patient's urinalysis on presentation was normal. By 08/31/2021 the patient was continuing to pass flatus and felt like she was very close to having a bowel movement. Her abdominal pain was nearly resolved. She indicated that she felt like the pain she was having on her left side may be consistent with shingles as she was starting developed some numbness and yet some itching along the same distribution. She did not have any obvious rash. She was feeling much better and was anxious to go home. The patient was discharged to home on 08/31/2021 with plans for her to follow-up with her regular physician as needed. Physical Exam Narrative: EXAM NARRATIVE: On the day of discharge, the patient's abdomen was completely soft and nontender. Bowel sounds were present. Discharge Data Studies Completed and Pending Completed Studies During Hospitalization Category Date Time Status CT abdomen pelvis w con* [id number] Stat Cat Scan 08/29/21 07:55 Completed Pending at discharge Category Date Time Status Basic Metabolic Panel AM LABS Lab 09/01/21 04:00 Ordered Basic Metabolic Panel AM LABS Lab 09/02/21 04:00 Ordered Complete Blood Count w/Auto AM LABS Lab 09/01/21 04:00 Ordered Complete Blood Count w/Auto AM LABS Lab 09/02/21 04:00 Ordered Radiology Impressions Abdomen/Pelvis CT 08/29/21 07:55 IMPRESSION: 1. Since the prior examination, obtained one day ago there has been development of a dilated small bowel loop with fecalization in the central abdomen. There is a focal area of mild tethering centrally which may be an adhesion. Closed loop small bowel obstruction should be considered. 2. Small amount of free fluid in the pelvis. 3. The appendix is normal. 4. No change in the 8 mm in nodule in the RIGHT diaphragmatic surface for which follow-up was recommended on the prior study. 5. Very minimal biliary dilatation with no obstructing stone or mass identified. Notified Yao Loving DO at 08/29/2021 10:13 AM. Laboratory Results WBC 3.7 10^3/uL (4.0-10.0) L 08/31/21 05:26 RBC 4.49 10^6/uL (4.1-5.3) 08/31/21 05:26 Hgb 12.9 g/dL (11.5-15.3) 08/31/21 05:26 Hct 41.9 % (37.0-47.0) 08/31/21 05:26 MCV 93.3 fl (81-99) 08/31/21 05:26 MCH 28.7 pg (28.0-34.0) 08/31/21 05:26 MCHC 30.8 g/dL (30.0-36.0) 08/31/21 05:26 RDW 12.7 % (12.1-15.1) 08/31/21 05:26 Plt Count 175 10^3/cmm (130-400) 08/31/21 05:26 MPV 9.3 fL (7.4-10.4) 08/31/21 05:26 Neut % (Auto) 44.8 % 08/31/21 05:26 Lymph % (Auto) 39.3 % 08/31/21 05:26 Cavalier % (Auto) 10.3 % 08/31/21 05:26 Eos % (Auto) 5.1 % 08/31/21 05:26 Baso % (Auto) 0.5 % 08/31/21 05:26 Neut # (Auto) 1.65 10^3/uL (1.8-7.7) L 08/31/21 05:26 Lymph # (Auto) 1.5 10^3/uL (0.8-4.8) 08/31/21 05:26 Cavalier # (Auto) 0.4 10^3/uL (0.2-0.9) 08/31/21 05:26 Eos # (Auto) 0.2 10^3/uL (0.0-0.8) 08/31/21 05:26 Baso # (Auto) 0.0 10^3/uL (0.0-0.1) 08/31/21 05:26 Nucleated RBC % (auto) 0 % 08/31/21 05:26 Nucleated RBCs # 0.0 /100WBC 08/31/21 05:26 Sodium 140 mmol/L (136-145) 08/31/21 05:26 Potassium 4.3 mmol/L (3.5-5.1) 08/31/21 05:26 Chloride 106 mmol/L (98-107) 08/31/21 05:26 Carbon Dioxide 22 mmol/L (22-29) 08/31/21 05:26 Anion Gap 16.3 (5-19) 08/31/21 05:26 BUN 6 mg/dL (8-23) L 08/31/21 05:26 Creatinine 0.7 mg/dL (0.5-0.9) 08/31/21 05:26 GFR Calculation 84.0 mL/min (90-130) L 08/31/21 05:26 Glucose 96 mg/dL (65-115) 08/31/21 05:26 Calculated Osmolality 287 mOsm/kg (285-295) 08/31/21 05:26 Lactic Acid 1.0 mmol/L (0.5-2.2) 08/29/21 08:38 Calcium 9.2 mg/dL (8.5-10.5) 08/31/21 05:26 Total Bilirubin 0.3 mg/dL (0.15-1.2) 08/30/21 05:46 AST 15 U/L (0-32) 08/30/21 05:46 ALT 13 U/L (0-33) 08/30/21 05:46 Alkaline Phosphatase 54 IU/L (35-105) 08/30/21 05:46 Total Protein 6.2 g/dL (6.6-8.7) L 08/30/21 05:46 Albumin 4.1 g/dL (3.5-5.2) 08/30/21 05:46 Globulin 2.1 g/dL (1.3-4.6) 08/30/21 05:46 Lipase 32 U/L (13-60) 08/29/21 08:38 Urine Color Yellow (Yellow) 08/29/21 09:01 Urine Appearance Clear (CLEAR) 08/29/21 09:01 Urine pH 6.5 (5-7) 08/29/21 09:01 Ur Specific [place] 1.025 (1.005-1.030) 08/29/21 09:01 Urine Protein Neg (Negative) 08/29/21 09:01 Urine Glucose (UA) Norm (Normal) 08/29/21 09:01 Urine Ketones Negative (Negative) 08/29/21 09:01 Urine Blood Neg (Negative) 08/29/21 09:01 Urine Nitrate Negative (Negative) 08/29/21 09:01 Urine Bilirubin Neg (Negative) 08/29/21 09:01 Urine Urobilinogen Norm mg/dL (Negative) 08/29/21 09:01 Ur Leukocyte Esterase Negative (Negative) 08/29/21 09:01 Vitals Last Vital Signs Temp 97.4 F L 08/31/21 07:19 Pulse 55 L 08/31/21 07:19 Resp 18 08/31/21 07:19 BP 156/62 08/31/21 07:19 Pulse Ox 98 08/31/21 07:19 Discharge Plan Discharge Patient Disposition: Home Condition: Stable Prescriptions: Continued meloxicam [Mobic] 15 mg tablet 15 mg PO DAILY 0RF levothyroxine [Synthroid] 75 mcg tablet 75 mcg PO DAILY 0RF glucosamine TYf-dla-xwcqgeqjtz 750-375-400 mg tablet 2 tab PO BID 0RF garlic 500 mg capsule 500 mg PO BID 0RF ah-[id number]-[id number]-epa-fish oil-vit D3 [id number] co-vs-nj-unit capsule 1 cap PO BID 0RF niacin 500 mg tablet 500 mg PO BID 0RF oxycodone-acetaminophen [Percocet] 5-325 mg tablet 1 tab PO Q6H PRN (Reason: painful procedure) 5 Days Qty: 20 0RF ondansetron 4 mg tablet,disintegrating 4 mg PO Q8H PRN (Reason: nausea and vomiting) Qty: 10 1RF multivitamin Tablet 1 tab PO DAILY 0RF tamsulosin 0.4 mg capsule 0.4 mg PO DAILY 0RF turmeric 400 mg Capsule 400 mg PO BID 0RF Discharge Orders: Discharge Order (Routine); Ordered 08/31/21 Ordered By: Kendrick Shankar Referrals: Nelsy Young [facility] [Primary Care Provider] - Discharge Diet: Advance as tolerated Discharge Activity: Increase activity as tolerated Patient Instructions: Opioid Safety Activity Restrictions/Additional Instructions: Follow-up with your regular physician as needed/discussed. Discharge Attestations Time Spent in Discharge Care*: less than 30 min Quality Metrics Clinical Quality Measures [ No reported AMI, CVA or VTE this stay] Coding Level of Care Code Acute Chg [facility] note Diagnoses Left upper quadrant abdominal pain R10.[address] scan, gastrointestinal tract R93.3
[2021-08-31] MEDS: ketorolac 10 mg Tablet PO (10:59)
--- NOTE | 2021-08-31 11:23 | PC.NURSE ---
discharge paperwork gone over with pt. all questions answered. iv removed. pt tolerated well. pt requested to be wheeled out by her so has safely wheeled pt out.
[2021-08-31 11:27] VITALS: BP 156/62; PULSE 55; RESP 18; TEMP 36.3; O2SAT 98
== END 2021-08-31 11:27 | disposition home or self-care (01) | DRG 390 ==
LOC: ER 12:12 → ER IP 15:30 → MEDSURG 17:53
PROVIDERS: Admitting Provider Surgery; Emergency Provider Family Medicine; PCP Nurse Practitioner; Visit Provider Surgery
DX: K56.600 Partial intestinal obstruction, unspecified as to cause (principal); K59.00 Constipation, unspecified; E03.9 Hypothyroidism, unspecified; Z87.442 Personal history of urinary calculi; I87.8 Other specified disorders of veins; Z79.891 Long term (current) use of opiate analgesic
CPT/HCPCS: 36415; 74018; 74176; 74177; 80048; 80053; 81003; 83605; 83690; 85025; 93005; 96372; 96374; 96375; 96376; 99285; G0378; J1644; J1885; J2270; J2405; J3490; J7030; Q9967

== ENCOUNTER 2021-11-22 10:57 | Outpatient (CLI) | payer MEDICARE, OTHER, SELFPAY ==
--- NOTE | 2021-11-22 11:19 | MM_ITS ---
WS: [id number] BILATERAL SCREENING 3D TOMOSYNTHESIS DIGITAL MAMMOGRAM WITH CAD HISTORY: SCREENING COMPARISON: 09/21/2020, 08/26/2019 Bilateral CC and MLO views submitted. Computer aided detection analyzed. Breast composition: There are scattered areas of fibroglandular density. No suspicious masses, microc alcifications or architectural distortion. Benign round and rodlike calcifications in each breast are stable. MM/[place] [id number] IMPRESSION: BI-RADS: 2-Benign FOLLOW UP: 1 Year Follow-up
== END 2021-11-22 10:58 | disposition home or self-care (01) ==
LOC: RADSHAW 11:00
PROVIDERS: PCP Nurse Practitioner; Visit Provider Nurse Practitioner
DX: Z12.31 Encounter for screening mammogram for malignant neoplasm of breast (principal)
CPT/HCPCS: 77063; 77067

== ENCOUNTER 2022-01-20 10:20 | Outpatient (RCR) | payer MEDICARE, OTHER, SELFPAY | END 2022-01-30 23:59 | disposition home or self-care (01) | LOC: SPT 10:20 | PROVIDERS: PCP Nurse Practitioner; Referring Provider Student in an Organized Health Care Education/Training Program; Visit Provider Student in an Organized Health Care Education/Training Program | DX: Z47.1 Aftercare following joint replacement surgery (principal); Z96.652 Presence of left artificial knee joint | CPT/HCPCS: 97110; 97161 ==

== ENCOUNTER 2022-01-31 06:00 | Outpatient (RCR) | payer MEDICARE, OTHER, SELFPAY | END 2022-03-02 23:59 | disposition home or self-care (01) | LOC: SPT 06:00 | PROVIDERS: PCP Nurse Practitioner; Referring Provider Student in an Organized Health Care Education/Training Program; Visit Provider Student in an Organized Health Care Education/Training Program | DX: Z96.652 Presence of left artificial knee joint (principal) | CPT/HCPCS: 97110 ==

== ENCOUNTER 2022-03-03 06:00 | Outpatient (RCR) | payer MEDICARE, OTHER, SELFPAY | END 2022-03-13 23:59 | disposition home or self-care (01) | LOC: SPT 06:00 | PROVIDERS: PCP Nurse Practitioner; Visit Provider Student in an Organized Health Care Education/Training Program | DX: Z47.1 Aftercare following joint replacement surgery (principal); Z96.652 Presence of left artificial knee joint | CPT/HCPCS: 97110 ==

== ENCOUNTER 2022-12-11 08:36 | Outpatient (CLI) | payer MEDICARE, OTHER, SELFPAY ==
--- NOTE | 2022-12-11 08:54 | MM_ITS ---
WS: [id number] BILATERAL SCREENING DIGITAL TOMOSYNTHESIS MAMMOGRAM WITH CAD HISTORY: SCREENING COMPARISON: 11/22/2021, 09/21/2020 Bilateral CC and MLO views with tomosynthesis and synthetic mammography submitted. Computer aided det ection analyzed. Breast composition: There are scattered areas of fibroglandular density. No suspicious masses, microc alcifications or architectural distortion. Benign rodlike calcifications in each breast are stable. MM/[place] [id number] IMPRESSION: BI-RADS: 2-Benign FOLLOW UP: 1 Year Follow-up
== END 2022-12-11 08:37 | disposition home or self-care (01) ==
PROVIDERS: PCP Electrodiagnostic Medicine; Visit Provider Nurse Practitioner
DX: Z12.31 Encounter for screening mammogram for malignant neoplasm of breast (principal)
CPT/HCPCS: 77063; 77067

== ENCOUNTER 2023-12-14 08:21 | Outpatient (CLI) | payer MEDICARE, OTHER, SELFPAY ==
--- NOTE | 2023-12-14 08:25 | MM_ITS ---
WS: [id number] BILATERAL SCREENING DIGITAL TOMOSYNTHESIS MAMMOGRAM WITH CAD HISTORY: SCREENING COMPARISON: 12/11/2022, 11/22/2021, 09/21/2020 Bilateral CC and MLO views with tomosynthesis and synthetic mammography submitted. Computer aided det ection analyzed. Breast composition: There are scattered areas of fibroglandular density. No suspicious masses, microc alcifications or architectural distortion. Numerous rodlike calcifications are stable. MM/[place] [id number] IMPRESSION: BI-RADS: 2-Benign FOLLOW UP: 1 Year Follow-up
== END 2023-12-14 08:22 | disposition home or self-care (01) ==
LOC: RAD 08:22
PROVIDERS: PCP Electrodiagnostic Medicine; Visit Provider Electrodiagnostic Medicine
DX: Z12.31 Encounter for screening mammogram for malignant neoplasm of breast (principal)
CPT/HCPCS: 77063; 77067

== ENCOUNTER → 2024-01-07 09:44 | Outpatient (BNVA) | payer MEDICARE, OTHER, SELFPAY | PROVIDERS: PCP Electrodiagnostic Medicine; Visit Provider Nurse Practitioner Family | DX: D22.72 Melanocytic nevi of left lower limb, including hip (principal); L81.4 Other melanin hyperpigmentation; L82.1 Other seborrheic keratosis; L20.9 Atopic dermatitis, unspecified | CPT/HCPCS: 11104; 99203 ==

== ENCOUNTER → 2024-02-10 10:51 | Outpatient (BNVA) | payer MEDICARE, OTHER, SELFPAY | PROVIDERS: PCP Electrodiagnostic Medicine; Visit Provider Nurse Practitioner Family | DX: L20.9 Atopic dermatitis, unspecified (principal); D22.72 Melanocytic nevi of left lower limb, including hip; L81.4 Other melanin hyperpigmentation; L82.1 Other seborrheic keratosis; L57.8 Other skin changes due to chronic exposure to nonionizing radiation | CPT/HCPCS: 99214 ==

== ENCOUNTER 2024-10-03 14:54 | Outpatient (CLI) | payer MEDICARE, OTHER, SELFPAY ==
--- NOTE | 2024-10-03 15:02 | XR_ITS ---
WS: [id number] SCREENING DEXA SCAN [place] CLINICAL INFORMATION: POSTMENOPAUSAL COMPARISON: None. FINDINGS: The LEFT forearm bone mineral density measures 0.74. This corresponds to a T score score of -1.5 and Z score of 0.1. Left femoral neck bone mineral density measures 0.999 g/cm2. This corresponds to a T score of -0.1 and Z score of 1.1. Right femoral neck bone mineral density measures 0.991 g/cm2. This corresponds to a T score -0.1of and Z score of 1.0. Mean femoral neck bone mineral density measures 0.995 g/cm2. This corresponds to a T score of -0.1 and Z score of 1.0. XR/XR DEXA axial skeleton* [id number] IMPRESSION: Osteopenia LEFT forearm. Normal bone mineralization of femoral necks. Patient's FRAX calculated 10 year probability for major osteoporotic fracture i s 13.8% and osteoporotic hip fracture is 1.6%.
== END 2024-10-03 14:55 | disposition home or self-care (01) ==
LOC: RAD 14:55
PROVIDERS: PCP Electrodiagnostic Medicine; Visit Provider Electrodiagnostic Medicine
DX: Z78.0 Asymptomatic menopausal state (principal); M85.832 Other specified disorders of bone density and structure, left forearm
CPT/HCPCS: 77080

== ENCOUNTER 2024-12-30 08:36 | Outpatient (CLI) | payer MEDICARE, OTHER, SELFPAY ==
--- NOTE | 2024-12-30 | MM_ITS ---
WS: [id number] BILATERAL 3D TOMOSYNTHESIS DIGITAL SCREENING MAMMOGRAPHY WITH CAD CLINICAL INFORMATION: ANNUAL HISTORY: Screening mammogram. No current complaints. COMPARISON: 2023 TECHNIQUE: Bilateral CC and MLO views. FINDINGS: Scattered fibroglandular densities bilaterally. No suspicious focal mass, asymmetry, calcifications, or architectural distortion. No evidence of malignancy. Incidental secretory calcifications. MM/MM [facility] tomosynthesis [id number] IMPRESSION: DENSITY: There are scattered areas of fibroglandular density. BI-RADS: 2 - Benign. FOLLOW UP: 1 Year Follow-up Recommend return to annual screening mammography.
== END 2024-12-30 08:37 | disposition home or self-care (01) ==
PROVIDERS: PCP Electrodiagnostic Medicine; Visit Provider Electrodiagnostic Medicine
DX: Z12.31 Encounter for screening mammogram for malignant neoplasm of breast (principal); R92.323 Mammographic fibroglandular density, bilateral breasts; R92.1 Mammographic calcification found on diagnostic imaging of breast
CPT/HCPCS: 77063; 77067

== ENCOUNTER → 2025-02-13 10:57 | Outpatient (BNVA) | payer MEDICARE, OTHER, SELFPAY | PROVIDERS: PCP Electrodiagnostic Medicine; Visit Provider Nurse Practitioner Family | DX: L20.9 Atopic dermatitis, unspecified (principal); D22.72 Melanocytic nevi of left lower limb, including hip; L81.4 Other melanin hyperpigmentation; L82.1 Other seborrheic keratosis; L57.8 Other skin changes due to chronic exposure to nonionizing radiation; L91.8 Other hypertrophic disorders of the skin; L29.89 Other pruritus; R20.8 Other disturbances of skin sensation; Z78.9 Other specified health status; L53.8 Other specified erythematous conditions; L57.0 Actinic keratosis | CPT/HCPCS: 17000; 17110; 99214 ==